=== PATIENT | female | born 1985 | race Caucasian/White ===

== ENCOUNTER 2021-05-09 14:09 | Outpatient (CLI) | payer BC, SELFPAY ==
--- NOTE | ~2021-05-09 | MMUS_ITS ---
EXAMINATION: MM diagnostic steven BI w scottie, US breast RT limited, US breast LT complete HISTORY: Palpable breast lump. TECHNIQUE: Additional 3-D tomosynthesis images of the breasts were performed and synthetic 2-D images were generated. CAD analysis was submitted and interpreted. High resolution Limited right and comple te left breast ultrasound was performed. COMPARISON: None BREAST PARENCHYMAL COMPOSITION: Breast composed of scattered areas of fibroglandular density. FINDINGS: MAMMOGRAPHIC FINDINGS: There is a focal asymmetry medially in the left breast on CC view which may represents a benign intra mammary lymph node or focal asymmetric fibroglandular tissue. ULTRASOUND: Limited right breast ultrasound: Normal heterogeneous echotexture without focal mass. Complete left breast ultrasound: Normal heterogeneous echotexture without focal solid or cystic mass. IMPRESSION: 1. Probable with benign focal asymmetry medially in the left breast on CC view. No sonographic correl ate. No evidence for malignancy in the right breast. 2. Recommend 6 month follow-up diagnostic left mammogram. BI-RADS category 3, probably benign findings. Reviewed, dictated and finalized at location A. OUT DRAFTER IMPRESSION: 1. Probable with benign focal asymmetry medially in the left breast on CC view. No sonographic correlate. No evidence for malignancy in the right breast. 2. Recommend 6 month follow-up diagnostic left mammogram. BI-RADS category 3, probably benign findings. IMPRESSION: 1. Probable with benign focal asymmetry medially in the left breast on CC view. No sonographic correlate. No evidence for malignancy in the right breast. 2. Recommend 6 month follow-up diagnostic left mammogram. BI-RADS category 3, probably benign findings.
== END 2021-05-09 14:10 ==
PROVIDERS: Visit Provider Nurse Practitioner Obstetrics & Gynecology
DX: R92.8 Other abnormal and inconclusive findings on diagnostic imaging of breast (principal); N63.10 Unspecified lump in the right breast, unspecified quadrant
CPT/HCPCS: 76641; 76642; 77062; 77066; G0279

== ENCOUNTER 2022-03-02 14:02 | Outpatient (CLI) | payer BC, SELFPAY ==
--- NOTE | ~2022-03-02 | MM_ITS ---
EXAMINATION: MM diagnostic steven LT w scottie HISTORY: Probable benign focal asymmetry in the medial left breast on 05/09/2021 screening mammogram TECHNIQUE: Full field and spot ML, MLO and CC 3-D tomosynthesis images of left breast were performed and synthetic 2-D images were generated. CAD analysis was submitted and interpreted. COMPARISON: 05/09/2021 diagnostic bilateral mammogram and complete left breast ultrasound BREAST PARENCHYMAL COMPOSITION: There are scattered areas of fibroglandular density. FINDINGS: No suspicious mass or architectural distortion, malignant calcification, skin thickening or retraction or significant new or developing density of the left breast is noted since 05/09/2021. Foc al asymmetry reported in the medial left breast on 05/09/2021 screening mammogram appears stable, with out suspicious features or interval change. 05/09/2021 complete left breast ultrasound examination was normal IMPRESSION: 1. No mammographic evidence of malignancy 2. Routine mammographic screening is recommended. BI-RADS Category 2: Benign finding(s). Reviewed, dictated and finalized at location A.
== END 2022-03-02 14:03 ==
LOC: MICIMG 14:03
PROVIDERS: PCP Internal Medicine; Visit Provider Nurse Practitioner Obstetrics & Gynecology
DX: R92.8 Other abnormal and inconclusive findings on diagnostic imaging of breast (principal)
CPT/HCPCS: 77061; 77065; G0279

== ENCOUNTER 2023-04-22 12:00 | Emergency (ER) | payer OTHER, SELFPAY ==
[2023-04-22 12:16] VITALS: BP 118/69; PULSE 79; RESP 16; TEMP 36.6; O2SAT 96
--- NOTE | 2023-04-22 13:04 | ED.URI ---
HPI - URI/Sore Throat General Chief Complaint: Upper Respiratory Infection Stated Complaint: Tired/Light Headed Time Seen by Provider: 04/22/23 13:04 Source: patient Mode of arrival: ambulatory Limitations: no limitations History of Present Illness HPI Narrative: 37 yo F states she tested positive for covid 5 days ago. Has been at home quarantining. reports mild congestion, bodyaches, chills, fatigue, fever. fever resolved. Today felt lightheaded when standing up. thought she should come in and be seen. No cough. Denies CP/SOB. ambulatory with steady gait. eating and drinking normally. All systems reviewed and negative except as noted above. Related Data Home Medications Medication Instructions Recorded Confirmed omeprazole 04/22/23 Allergies Allergy/AdvReac Type Severity Reaction Status Date / Time Sulfa (Sulfonamide Allergy Unknown Rash Verified 06/26/16 08:56 Antibiotics) Review of Systems Review of Systems: CONSTITUTIONAL: Reports fever, chills, or sweats. EYES: Denies visual changes, redness, or discharge. ENT: Denies rhinorrhea, congestion, sore throat, or otalgia. CARDIOVASCULAR: Denies chest pain, palpitations, or edema. RESPIRATORY: Denies cough or dyspnea. GASTROINTESTINAL: Denies abdominal pain, nausea, vomiting, or diarrhea. GENITOURINARY: Denies dysuria or hematuria. SKIN: Denies rash or itching. MUSCULOSKELETAL: Denies back pain, joint pain. Reports myalgia. NEUROLOGIC: Reports headache. Denies numbness, or weakness. PSYCHIATRIC: Denies anxiety or depression. All other systems reviewed are negative, except as documented in HPI. PMFSH Family History Family History (Updated 11/05/16 @ 14:58 by DOCTOR UNKNOWN) Father Diabetes mellitus Hypertension Social History Social History Smoking status: Former smoker Smoking end date: 06/03/11 Alcohol intake: current Comments At time of signature, agree with nursing past medical, surgical, social and family history. There is no relevant family history pertinent to the presenting complaint. Exam Narrative: GENERAL: This is a well-nourished, well-developed patient, patient ill-appearing but in no acute distress. HEAD: normocephalic, atraumatic. EYES: PERRL. Sclera clear/white. Vision is grossly intact. EARS: External ears normal, auditory canals clear and without drainage, TMs normal without perforation. Hearing grossly intact. NOSE: External nose normal with no obvious nasal discharge, nares without redness, no rhinorrhea. THROAT: Mucous membranes moist, posterior pharynx clear. NECK: Neck supple, non-tender without lymphadenopathy, masses or thyromegaly. CARDIOVASCULAR: Regular rate and rhythm without murmurs, gallops, or rubs. RESPIRATORY: Clear to auscultation. Breath sounds equal bilaterally. No wheezes, rales, or rhonchi. SKIN: warm, Dry, intact with no suspicious lesions or rash, good texture and turgor. NEURO: awake, alert, and oriented to person, place and time. There were no obvious focal neurologic abnormalities. EXTREMITIES: No joint tenderness, effusion, or edema noted. Course Course Level of Care: Express Care Visit Vital Signs Vital signs: Vital Signs Temperature 36.6 C 04/22/23 12:16 Pulse Rate 79 04/22/23 12:16 Respiratory Rate 16 04/22/23 12:16 Blood Pressure 118/69 04/22/23 12:16 Pulse Oximetry 96 04/22/23 12:16 Oxygen Delivery Room Air 04/22/23 12:16 Temperature 36.6 C 04/22/23 12:16 Pulse Rate 79 04/22/23 12:16 Respiratory Rate 16 04/22/23 12:16 Blood Pressure 118/69 04/22/23 12:16 Pulse Oximetry 96 04/22/23 12:16 Oxygen Delivery Room Air 04/22/23 12:16 Reviewed MDM - URI/Sore Throat MDM Narrative Medical decision making narrative: Patient is well-appearing. No dizziness or lightheadedness while at [facility]. Recommend she stay hydrated with water, move from sitting to standing position slowly. Patient is aware of diagnosis, unders
== END 2023-04-22 13:15 | disposition home or self-care (01) ==
PROVIDERS: Emergency Provider Nurse Practitioner Family
DX: U07.1 COVID-19 (principal); Z87.891 Personal history of nicotine dependence
CPT/HCPCS: 99202; G0463